=== PATIENT | female | born 1940 | race Caucasian/White ===

== ENCOUNTER 2021-12-29 12:43 | Day surgery (SDC) | payer MEDICARE, BC, SELFPAY ==
[2021-11-15 12:22] VITALS: BMI 39.1
[2021-12-29] VITALS (9 sets, daily range): BP systolic 130–151; BP diastolic 42–71; PULSE 64–86; RESP 15–18; TEMP 35.5–37.1; O2SAT 94–99; BMI 39.1
--- NOTE | 2021-12-29 | DI.RAD.S_ITS ---
PROCEDURE: XR PELVIS 1-2V INDICATIONS: FOREIGN BODY; lost a needle TECHNIQUE: 2 view of the lower pelvis acquired. COMPARISON: [facility], , XR PELVIS 1-2V, 12/29/2021, 16:21. FINDINGS: Bones: Patient is status post right hip arthroplasty, with hardware components in expected positions. The hip joint appears congruent. The visualized bony structures appear intact. Soft tissues: Overlying postoperative changes are noted. No suspicious soft tissue densities. No radiopaque soft tissue foreign bodies identified in the form of a needle. Skin darien and drainage catheter are in place. IMPRESSION: Stable postsurgical changes status post right total hip arthroplasty. No radiopaque soft tissue foreign bodies identified in the form of the needle. Dictated by: Surinder Figueroa M.D. on 12/29/2021 at 18:24 Approved by: Surinder Figueroa M.D. on 12/29/2021 at 18:25
--- NOTE | 2021-12-29 | DI.RAD.S_ITS ---
PROCEDURE: XR HIP W PEL IF DONE RT 2V INDICATIONS: INTRA-OP HIP RIGHT TECHNIQUE: AP pelvis and lateral view of the right hip acquired. COMPARISON: [facility] [place], [place], XR PELVIS WITH BILATERAL LATERAL HIPS, 10/20/2021, 15:43. [facility], CR, XR PELVIS 1-2V, 12/29/2021, 17:21. FINDINGS: Bones: Patient is status post right hip arthroplasty, with hardware components in expected positions. The hip joint appears congruent. The visualized bony structures appear intact. Soft tissues: Overlying postoperative changes are noted. No suspicious soft tissue densities. Soft tissue drain and skin darien are visualized. IMPRESSION: Status post right total hip arthroplasty without evidence for acute hardware complication. Stable appearance of remote left hip arthroplasty. Dictated by: Surinder Figueroa M.D. on 12/29/2021 at 18:26 Approved by: Surinder Figueroa M.D. on 12/29/2021 at 18:28
--- NOTE | 2021-12-29 06:00 | DI.RAD.S_ITS ---
PROCEDURE: XR PELVIS 1-2V INDICATIONS: right CAROLYNN interop TECHNIQUE: 1 view of the lower pelvis acquired. COMPARISON: None. FINDINGS: Bones: Patient is status post right hip arthroplasty, with hardware components in expected positions. The hip joint appears congruent. A left hip arthroplasty is also seen. The visualized bony structures appear intact. Soft tissues: Overlying postoperative changes are noted. No suspicious soft tissue densities. IMPRESSION: Expected postsurgical change. Dictated by: Rober Donis M.D. on 12/29/2021 at 16:59 Approved by: Rober Donis M.D. on 12/29/2021 at 17:00
[2021-12-29] MEDS: ACETAMINOPHEN 325 MG TABLET 975 MG PO (13:35)
[2021-12-29] MEDS: CELECOXIB 200 MG CAPSULE PO (13:36)
[2021-12-29] MEDS: VANCOMYCIN 1,000 MG/200 ML PIGGYBACK 200 MG IV (13:42)
[2021-12-29] MEDS: LACTATED RINGERS 1,000 ML 125 ML IV ×3 (14:30→19:27)
--- NOTE | 2021-12-29 14:35 | PM.HP.1 ---
History of Present Illness History of Present Illness Date Patient Seen: 12/29/21 Time Patient Seen: 14:10 Chief complaint: OPB Narrative: Is a 81-year-old female with incapacitating right hip pain. Her x-rays show a superior severely destroyed right hip. She is brought the operating room for right total hip arthroplasty. 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) Hx of bilateral cataract extraction (2019) Hx of tonsillectomy Family & Social History Social History: household members spouse Prior Living Arrangements House Safety & Behavioral: Feels Safe in Current Yes Environment Been Physically Hurt or No Threatened By a Person Suicidal Ideation Description None Suicide Plan Description No Plan Tobacco & Substance use: Smoking Status Never smoker alcohol intake current alcohol intake frequency 0-2 drinks per day Substance Use Type does not use Meds Home Medications and Allergies Home Medications Medication Instructions Recorded Confirmed Type acetaminophen 650 mg 650 mg PO Q12H 11/15/21 12/29/21 History tablet,extended release chlorthalidone 25 mg tablet 25 mg PO DAILY 11/15/21 12/29/21 History levothyroxine 88 mcg tablet 88 mcg PO DAILY 11/15/21 12/29/21 History lisinopril 10 mg tablet 10 mg PO QPM 11/15/21 12/29/21 History Allergies Allergy/AdvReac Type Severity Reaction Status Date / Time adhesive tape Allergy Severe My skin Verified 12/29/21 13:19 comes off with it Review of Systems Review of Systems Narrative: Denies recent fevers or chills, notes that she has been feeling reasonably good no recent cardiac or respiratory problems Exam Vital Signs (past 8 hours): - 12/29/21 13:20 Temperature 98.8 F Pulse Rate 86 Respiratory Rate 18 Blood Pressure 151/70 H Pulse Oximetry 99 Oxygen Delivery Method Room Air Narrative Exam Narrative: HEENT is benign, lungs are clear, cor regular rate and rhythm, abdomen is obese but benign, right lower extremity shows severe pain with range of motion, shortening of the right femoral head and substantial stiffness. She is neurologically intact distally except for some mild bilateral lower extremity numbness Objective ECG Impression: Severe right hip osteoarthritis I have recommended a right total hip arthroplasty Assessment & Plan Assessment and plan (1) Osteoarthritis of right hip: Status: Acute Plan I recommended a right total hip arthroplasty. The procedure alternatives risks benefits and complications were discussed in detail. Her previous history and physical was reviewed and updated. There has been no interval change. She notes incapacitating right hip pain and I recommended a right total hip arthroplasty. Assessment & Plan narrative: Right total hip arthroplasty. Posterior approach. Time Spent With Patient Critical Care time: I spent a total of [] minutes of critical care time on this patient's care today; this time is exclusive of procedural time.
--- NOTE | 2021-12-29 14:42 | PM.OP.1 ---
Operative Date/Time/Diagnoses Date of procedure: 12/29/21 Time of procedure: 15:00 Pre-op diagnosis: Severe right hip osteoarthritis, morbid obesity Post-op diagnosis: same Procedure & Clinicians Procedure: Right total hip arthroplasty posterior approach Same procedure as scheduled: Yes Indications: The patient has had progressively worsening right hip pain with radiographic changes consistent with arthritis. Non-operative management has failed and the patient has requested total hip replacement. The risks, benefits and alternatives to surgery were discussed with the patient prior to proceeding. Risks discussed included, but were not limited to, failure to relieve pain, leg length discrepancy, dislocation, stiffness, infection, nerve damage, deep venous thrombosis, pulmonary embolism, stroke, coma, heart attack, permanent paralysis and , as well as the potential need for eventual revision of the prosthetic. Surgeon: Sloane Bravo Vehicle Operator: Herber Ramirez Anesthesia Type: General and Spinal Operative Notes Findings: Severe right hip osteoarthritis, adequate stability Closure Type: primary Specimen(s): none sent Prosthetic devices, grafts, tissues, transplants, or devices: Nephew R3 cup 4, size 7 standard offset anthology, +0 neutral poly liner, +0 cobalt head, one 6.5 mm 15 mm screw Applied: drain(s) Estimated Blood Loss (mL): 250 Blood products transfused: none Procedure in detail: The patient was seen in the pre-operative area, where the patient identified the right hip as the operative site and this was marked with my initials. The patient received pre-operative antibiotics and was taken to the operating room and placed on the operative table in the left lateral decubitus position after satisfactory anesthesia. A motion and time study teacher out was performed. The right leg was prepared from the ankle to the iliac crest with ChloroPrep in the usual fashion and draped through sterile drapes. The hip was approached through an approximately 20 cm incision centered over the greater trochanter and curving gently posteriorly as it went proximally. This was carried sharply to the fascia jcarlos, which was divided and retracted with a self retaining retractor. The trochanteric bursa was excised with care being taken to avoid the sciatic nerve, which was identified and protected throughout the case. The short external rotators were incised and the capsulomuscular flap was raised and tagged for later repair. The hip was dislocated, and a femoral neck osteotomy performed approximately 15 mm above the lesser trochanter. Retractors were placed around the femur. The canal was opened with a box cutting osteotome, followed by a T handled reamer and a lateralizing reamer. The chili pepper broach was then used, followed by sequential broaching until there was good stability of the broach in the femur. Retractors were placed to expose the acetabulum. The labrum and central soft tissues were removed. Reaming was performed initially going up in 2 mm increments, then 1 mm increments until good bite was obtained with an odd sized reamer. The cup 1 mm larger than the last reamer was then inserted using the appropriate anteversion guides. It was further stabilized with a single screw. A trial neutral liner was placed. The broach was placed in the canal. A trial head and neck were then placed and the hip relocated and checked for leg length and stability. An intraoperative film confirmed the component position and no evidence of fracture. The patient was stable in the position of sleep, of squatting, and could be put through a range of motion with 45 degrees internal rotation without dislocation. At 90 degrees flexion, internal rotation to 70? was possible before dislocation. This was felt to be satisfactory and the appropriate components were opened, and the trials were removed. A placed a 2nd screw in the acetabulum to further stabilize the acetabulum. The acetabular liner was impacted into position. The final stem was then impacted into the prepared femoral canal. A brief Betadine soak was performed while trialing with head options. The hip was meticulously irrigated with normal saline. Finally the femoral head was impacted onto the stem. The acetabulum was cleared of all material and the hip relocated one final time. The capsulomuscular flap was then repaired to the greater trochanter though an awl hole using the tag sutures. The short external rotators were repaired with a nonabsorbable suture. A deep drain was placed and brought out anteriorly. The fascia jcarlos was closed with Vicryl. The subcutaneous layer was closed with barbed sutures and SteriStrips. An Aquacel Ag dressing was applied and the patient was taken to recovery having tolerated the procedure well. Complications: none Post-operative Condition: stable Disposition: observation Plan for aftercare: The patient will be maintained on a standard total hip replacement protocol with weight bearing as tolerated and posterior hip precautions. The patient will receive Aspirin and sequential compression devices for DVT prophylaxis. The patient will be discharged home when safe for the home environment.
[2021-12-29] MEDS: CEFAZOLIN 2 GM/20 ML SYRINGE IV ×2 (15:26→22:55)
[2021-12-29] MEDS: TRANEXAMIC ACID 1,000 MG VIAL 2000 MG INJ ×2 (15:27→17:05)
--- NOTE | 2021-12-29 15:40 | SUR.OPER ---
Lateral on padded OR bed. Gel axillary roll. Arms secured on padded armboard with pillow supporting top arm. Padded hip positioner braces x4 - anterior and posterior chest and pelvis. Additional gel pad used anterior pelvis. Gel pad under bottom leg from knee to foot and secured with tape over sheet.
[2021-12-29] MEDS: BUPIVACAINE LIPOSOME 266 MG/20 ML VIAL INJ (15:46)
[2021-12-29] MEDS: BUPIVACAINE 0.5% W/ EPI (PF) 30 ML VIAL INJ (16:07)
[2021-12-29] MEDS: EPINEPHrine 1 MG/ML TOP (16:31)
[2021-12-29] MEDS: SODIUM CHLORIDE IRRIG SOLUTION 250 ML, POVIDONE-IODINE SPONGE STICKS 1 APPLIC IRR (16:32)
--- NOTE | 2021-12-29 17:42 | SUR.OPER ---
All counts completed by Viktoria Diehl RN and Dilma Barcenas floor tech. Initial count was 13 and Final count was 15. Portable x-ray was taken approximately 17:30 after procedure and prior to leaving Operating Room.
[2021-12-29] MEDS: IBUPROFEN 400 MG TABLET PO (20:20)
[2021-12-29] MEDS: DOCUSATE 100 MG CAPSULE PO (20:21)
[2021-12-29] MEDS: ACETAMINOPHEN 325 MG TABLET 650 MG PO (20:21)
[2021-12-29] MEDS: ASPIRIN EC 81 MG TABLET PO (20:21)
[2021-12-30 00:45] VITALS: BP 133/51; PULSE 79; RESP 18; TEMP 36.7; O2SAT 94
[2021-12-30 04:00] VITALS: BP 127/51; PULSE 87; RESP 18; TEMP 36.6; O2SAT 99
[2021-12-30] MEDS: IBUPROFEN 400 MG TABLET PO ×3 (05:47→13:12)
[2021-12-30] MEDS: CEFAZOLIN 2 GM/20 ML SYRINGE IV (06:02)
[2021-12-30 07:34] LABS: Hematocrit 32.3 % (36-46); Hemoglobin 10.6 g/dL (12.0-16.0)
--- NOTE | 2021-12-30 08:13 | PM.DS.1 ---
History of Present Illness History of Present Illness Date Patient Seen: 12/30/21 Time Patient Seen: 08:13 Chief complaint: Right hip pain s/p right CAROLYNN Narrative: Patient is complaining of mild right hip pain this morning. Her main concern is her scratchy throat. She denies any chest pain nausea or vomiting or shortness of breath. No new numbness or tingling. Overall she is feeling well and would like to be discharged home today. Her is available to help as well as her daughter and [id number]. Discharge Providers Provider Discharge Date: 12/30/21 Primary care physician: LISBETH Ramirez Consults: 12/29/21 06:00 Consult to Anesthesiology Routine Comment: Consulting Provider: Anesthesiologist Reason for consultation: Regional block for post operative pain control 12/29/21 18:18 Consult to Anesthesiology Routine Comment: Consulting Provider: Anesthesiologist Reason for consultation: Regional block for post operative pain control Consult to Discharge Planning Routine Comment: Consult to Physical Therapy Evaluate & Treat Comment: Physician Instructions: post op CAROLYNN protocol Consult to Respiratory Therapy Evaluate & Treat Comment: Physician Instructions: Evaluate and treat Discharge provider: Harriet Nguyen PA-C Summary Hospital Course Discharge Diagnosis: Severe right hip osteoarthritis, morbid obesity Hospital Course: Operative Date/Time/Diagnoses Date of procedure: 12/29/21 Time of procedure: 15:00 Procedure & Clinicians Procedure: Right total hip arthroplasty? posterior approach Same procedure as scheduled: Yes Indications: The patient has had progressively worsening right hip pain with radiographic changes consistent with arthritis. Non-operative management has failed and the patient has requested total hip replacement. The risks, benefits and alternatives to surgery were discussed with the patient prior to proceeding. Risks discussed included, but were not limited to, failure to relieve pain, leg length discrepancy, dislocation, stiffness, infection, nerve damage, deep venous thrombosis, pulmonary embolism, stroke, coma, heart attack, permanent paralysis and , as well as the potential need for eventual revision of the prosthetic. Surgeon: Sloane Bravo Buffing Wheel Operator: Herber Ramirez Anesthesia Type: General and Spinal Operative Notes Findings: Severe right hip osteoarthritis, adequate stability Closure Type: primary Specimen(s): none sent Prosthetic devices, grafts, tissues, transplants, or devices: Nephew R3 cup 4, size 7 standard offset anthology, +0 neutral poly liner, +0 cobalt head,? one 6.5 mm 15 mm screw Applied: drain(s) Estimated Blood Loss (mL): 250 Blood products transfused: none Status at Discharge Cognitive/behavioral status at discharge: oriented Functional status at discharge: uses cane/walker Overall status at discharge: patient is progressing back to baseline Exam Vital Signs (past 8 hours): - 12/30/21 00:45 12/30/21 04:00 Temperature 98.0 F 97.9 F Pulse Rate 79 87 Respiratory Rate 18 18 Blood Pressure 133/51 L 127/51 L Pulse Oximetry 94 99 Oxygen Delivery Method Room Air Oxygen Flow Rate 0 Narrative Exam Narrative: Pleasant 81-year-old female, resting comfortably in bed, no acute distress. Dressing is clean, dry, intact. Hemovac has put out minimal drainage. Bilateral lower extremity: Motor functions are grossly intact, sensation is grossly intact to light touch, calves are soft and nontender to palpation. 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 Weightbearing as tolerated front wheel walker. Maintain posterior hip precautions x6 weeks -aspirin 81 mg twice daily x6 weeks for DVT prophylaxis, continue with current pain regimen -remove Hemovac today and clamp off charly dressing, as it is not functioning -cephacol lozenges for her scratchy throat -DC home once cleared by PT x2 sessions Discharge Plan Discharge Plan Patient Disposition: Home Discharge orders & Medications Discharge Orders: Discharge (Order); Ordered 12/30/21 Ordered By: Harriet Nguyen Prescriptions: New aspirin 81 mg Tablet,Delayed Release (Dr/Ec) 81 mg PO BID 42 Days Qty: 84 0RF Rx Instructions: Prevent blood clots ibuprofen 400 mg Tablet 400 mg PO Q4HR MDD Max 2400 mg per day PRN (Reason: Pain/inflammation) Qty: 90 0RF acetaminophen 500 mg capsule 500 mg PO Q4H MDD Max 3000 mg per day PRN (Reason: fever or pain) Qty: 90 0RF oxycodone 5 mg Tablet 5 mg PO Q3HR PRN (Reason: Pain, Moderate (4-6)) Qty: 30 0RF Continued chlorthalidone 25 mg Tablet 25 mg PO DAILY 0RF acetaminophen 650 mg Tablet Extended Release 650 mg PO Q12H 0RF levothyroxine 88 mcg Tablet 88 mcg PO DAILY 0RF lisinopril 10 mg Tablet 10 mg PO QPM 0RF Follow up/Referrals: Kim Bedolla FNP-C [Primary Care Provider] - Sloane Bravo MD [Physician] - (10-14 days for postoperative visit) Diet/Activity/Treatments Diet: Diet as Tolerated Other treatments: Medications: -Aspirin 81mg twice daily x6 weeks to prevent blood clots. -OTC Tylenol 500 mg 1 tablet every 4 hours as needed for pain/fever. Max 6 tablets per day. -Ibuprofen 400 mg 1 tablet every 4 hours as needed for pain/inflammation. Max 2,400 mg per day. -Oxycodone 5 mg take 1-2 tablets every 4 hours as needed for moderate-severe pain (narcotic pain medication). -As needed medications: -Ducolax and /or MiraLax as needed for constipation from narcotic pain medications. -Pepcid AC as needed for stomach upset (usually from aspirin or ibuprofen). Dressing/Wound care: -Keep Charly dressing in place until postoperative follow-up office visit. -Okay to shower. Keep wound out of direct water stream. No soaking or submerging until all the scabs fall off (approximately 6 weeks). -Please call the office if dressing becomes wet, soiled, or saturated. Activities: -Maintain posterior hip precautions x6 weeks. -Weight-bearing as tolerated. Use front wheeled walker, and progress to cane when safe. -Continue with home exercises as directed by your physical therapist. -Elevate ?toes above the nose if you have significant swelling in your lower leg. (Oscar wedge pillow is easiest.) -Ice your incision as needed for pain/inflammation/swelling. Protect your skin with a folded pillowcase. Follow-up: -Follow-up with your surgeon or PA in the office in 10-14 days after surgery. -Follow-up with your surgeon 6 weeks postoperatively. Call the office if you have chest pain, shortness of breath, significant swelling that will not resolve with elevating, fever over 101?, significantly worsening pain. [facility]: [phone] Skin/Wound/Dressing Care Report to your healthcare provider any signs of infection, such as:: chills, fever, night sweats, unusual drainage and unusual redness Visit Report/Discharge Packet Instructions: DI for Hip Replacement Stand Alone Forms: Surgery Discharge Discharge Data Primary Care Provider: Kim Bedolla Attending Provider: Sloane Bravo Quality VTE Deep Vein Thrombosis/Pulmonary Embolism Present on Admission: No
[2021-12-30 08:39] VITALS: BP 119/42; PULSE 71; RESP 16; TEMP 36.1; O2SAT 98
[2021-12-30] MEDS: LEVOTHYROXINE 88 MCG TABLET PO (09:06)
[2021-12-30] MEDS: CHLORTHALIDONE 25 MG TABLET PO (09:06)
[2021-12-30] MEDS: BENZOCAINE/MENTHOL 1 LOZ PKT 1 EACH PO (09:06)
[2021-12-30] MEDS: ASPIRIN EC 81 MG TABLET PO (09:07)
[2021-12-30] MEDS: DOCUSATE 100 MG CAPSULE PO (09:07)
[2021-12-30] MEDS: ACETAMINOPHEN 325 MG TABLET 650 MG PO (09:07)
--- NOTE | 2021-12-30 09:15 | PT.IIE ---
Current Diagnoses Unilateral primary osteoarthritis, right hip (12/29/21) Surgery Performed Operation Date: 12/29/21 14:45 Actual Procedures p Total Hip Arthroplasty(Right) - Sloane Bravo MD Medical History (Last Reviewed 12/30/21 @ 08:15 by Harriet Nguyen PA-C) Elevated cholesterol Heart murmur HTN (hypertension) Hypothyroid Osteoarthritis Thinning of skin Physical Therapy Inpatient Evaluation/Re-Eval M1 PT/OT-IP Prior Functional Status Start: 12/30/21 13:20 Freq: NEEDED Status: Active Protocol: Document 12/30/21 09:15 AB (Rec: 12/30/21 13:30 AB [id number]) Medical Review Prior Functional Status Medical History Reviewed Yes Communication able to make needs known; SENE[place]-CAYUGA and slight confusion Mobility and Gait pt tated that she is modified independent with all mobilities and ambulation without AD but has used 2 canes a few months prior to surgery Social History Household Members spouse Living Arrangements House Number of Floors (Floors) Two Floors Number of Stairs To Enter/Railing? pt stays on main level of the house 2 steps B rails to enter the house Home Environment High Toilet,Walk in Shower, Built-In Shower Seat Home Equipment Front Wheel Walker,Straight Cane,Hand Held Shower,Grab Bars In Shower Additional Social History Comment pt stated that her daughter will stay with her for 1-2 weeks to assist her and her daughter in law can also come in to assist her if needed M2 PT-IP Current Condition Start: 12/30/21 13:20 Freq: NEEDED Status: Active Protocol: Document 12/30/21 09:15 AB (Rec: 12/30/21 13:30 AB [email or web address]) Physical Therapy Current Condition Current Condition Evaluation Date 12/30/21 Treatment Diagnosis s/p R CAROLYNN posterior approach; difficulty in walking Onset Date 12/29/21 M3 PT-IP Subjective Start: 12/30/21 13:20 Freq: NEEDED Status: Active Protocol: Document 12/30/21 09:15 AB (Rec: 12/30/21 13:30 AB [email or web address]) Subjective Physical Therapy Visit Type Type Initial Evaluation Visit Start Time 09:15 Visit Stop Time 10:15 Total Visit Minutes 60 Number of SPLINE ROLLING MACHINE JOB SETTER Visits 0 Physical Therapy Visit Comments Patient Comments pt agreeable to do PT Therapy Pain Assessment Pain When Pain Assessed At Rest Pain Present Pain Present Pain Reported Location Right Hip Intensity 6 Scale Used Numeric (0 - 10) Pain Management Techniques Distraction,Elevation, Modification of Treatment,Re- positioning,Timing of Activity with Medications M4 PT-IP Mobility and Gait Start: 12/30/21 13:20 Freq: NEEDED Status: Active Protocol: Document 12/30/21 09:15 AB (Rec: 12/30/21 13:30 AB [email or web address]) PT-Bed Mobility Assessment Supine to Sit Supine to Sit Minimal Assistance PT-Transfer Assessment Sit to and From Stand Sit to and from Stand Moderate Assistance,1 Person Assistance,Use of Upper Extremities Equipment Transfer Assistive Device Front Wheeled Walker Orthotic/Prosthetic Devices or Brace: No Transfers Transfer Destination Chair,Toilet Transfer Technique ambulated Transfer Ability Level of Assist Moderate Assistance,1 Person Assistance,Use of Upper Extremities Comments Mobility Comments educated pt on posterior hip precautions. pt requires cues to recall. completed supine to sit min A and max cues. pt sat on EOB CGA. completed sit to stand mod A and max cues for hip precautions. ambulated in room using FWW ~ 30 ft mod A and cues. cued for quads sets. pt requested to use the toilet and ambulated towards the toilet using FWW. max cues for hip precautions. call light positioned nex to pt and instructed to call for assitance. informed nurse. caregiver training set up this afternoon at 130 pm. Gait Assessment Gait Gait Assistance Required: Minimum Assistance,Moderate Assistance Distance (Feet) 30 Able to Maintain Weight Bearing Status Yes During Gait Assistive Devices Assistive Device Gait Belt,Front Wheeled Walker Orthotic/Prosthetic Devices or Brace: No Gait Deviations General Gait Pattern Antalgic,Decreased Stride Length,Decreased Feet Clearance Factors Limiting Gait Function Factors Limiting Gait Function Decreased Activity Tolerance, Decreased Strength,Difficulty Following Directions,Limited Range of Motion,Pain,Poor Balance,Poor Safety Awareness PT-Balance Assessment Sitting Balance and Reactions Static Sitting Balance Ability Good Dynamic Sitting Balance Ability Good Standing Balance and Reactions Static Standing Balance Ability Fair Dynamic Standing Balance Ability Fair Device Used FWW M5 PT-IP Objective Assessments Start: 12/30/21 13:20 Freq: NEEDED Status: Active Protocol: Document 12/30/21 09:15 AB (Rec: 12/30/21 13:30 AB [email or web address]) Orientation Orientation/Cognition Level of Alertness Alert Orientation Name,Place,Situation Language Function Ability Hard of Hearing Safety Awareness Decreased Safety Awareness Memory Description Short Term Impaired Comments with confusion Gross Range of Motion Lower Extremity ROM Assessment Within Functional Limits Strength Lower Extremity Strength Assessment Right Impaired Hip 3+/5 Knee 3+/5 Coordination Assessment Gross Coordination Gross Coordination WNL Sensation Assessment Sensation Gross Sensation WNL Muscle Tone Muscle Tone WNL Yes M6 PT-IP Treatment Start: 12/30/21 13:20 Freq: NEEDED Status: Active Protocol: Document 12/30/21 09:15 AB (Rec: 12/30/21 13:30 AB [email or web address]) Physical Therapy Treatment Education Education Provided Precautions,Weight Bearing Status,Post-Op Packet,Safety M7 PT-IP Assessment and Plan Start: 12/30/21 13:20 Freq: NEEDED Status: Active Protocol: Document 12/30/21 09:15 AB (Rec: 12/30/21 13:30 AB [email or web address]) PT Summary Assessment and Plan Potential Rehabilitation Potential Fair Status of Condition at Evaluation Evolving Summary Impairments Pain,ROM,Strength,Balance, Coordination,Sensation,Tone, Cognition,Bed Mobility, Transfers,Gait,Activity Tolerance Assessment Summary pt requiring mod A with mobility and max cues with all tasks for hip precautions and safety. caregiver training set up for this afternoon at 130 pm. will continue to assess progress for safe d/c plan. Goals Bed Mobility Goal Standby Assistance Transfer Goal Standby Assistance,Front Wheeled Walker Gait Goal Standby Assistance,Front Wheel Walker Gait Distance 200 Other Goals up/down 2 steps B rails SBA Days to Meet Goals 5 Frequency of Treatment Frequency Of Treatment Twice a Day Treatment Plan Physical Therapy Treatment Plan Bed Mobility Training,Transfer Training,Gait Training, Therapeutic Exercise,Balance Retraining,Post Op Education, Discharge Planning,Hot or Cold Pack,Neuromuscular Re-ed, Coordination Retraining,Manual Therapy Precautions Posterior Hip Precautions No Hip Flexion > 90 degrees,No Hip Internal Rotation,No Hip Adduction Weight Bearing Status Weight Bearing Status Weight Bear as Tolerated Allowed Weight Bearing Amount (enter % RLE WBAT or #) (%) Recommendations To Nursing Amount of Assist Needed 1 Person Assist Discharge Recommendations PT Discharge Recommendations Home with 29/05 Assist Available,Outpatient PT Transportation Needs at Discharge Private Vehicle
--- NOTE | 2021-12-30 13:30 | PT.IPTN ---
Current Diagnoses Unilateral primary osteoarthritis, right hip (12/29/21) Surgery Performed Operation Date: 12/29/21 14:45 Actual Procedures p Total Hip Arthroplasty(Right) - Sloane Bravo MD Physical Therapy Treatment Note M2 PT-IP Current Condition Start: 12/30/21 13:20 Freq: NEEDED Status: Discharge Protocol: Document 12/30/21 09:15 AB (Rec: 12/30/21 13:30 AB [email or web address]) Physical Therapy Current Condition Current Condition Evaluation Date 12/30/21 Treatment Diagnosis s/p R CAROLYNN posterior approach; difficulty in walking Onset Date 12/29/21 M3 PT-IP Subjective Start: 12/30/21 13:20 Freq: NEEDED Status: Discharge Protocol: Document 12/30/21 13:30 AB (Rec: 12/30/21 15:12 AB [id number]) Subjective Physical Therapy Visit Type Type Treatment Note Visit Start Time 13:30 Visit Stop Time 14:05 Total Visit Minutes 35 Number of MANAGER OF MANUFACTURING Visits 0 Physical Therapy Visit Comments Patient Comments pt's DIL in room for cargiver training Therapy Pain Assessment Pain When Pain Assessed At Rest Pain Present Pain Present Pain Reported Location Right Hip Intensity 5 Scale Used Numeric (0 - 10) Pain Management Techniques Distraction,Modification of Treatment,Re-positioning, Timing of Activity with Medications M4 PT-IP Mobility and Gait Start: 12/30/21 13:20 Freq: NEEDED Status: Discharge Protocol: Document 12/30/21 13:30 AB (Rec: 12/30/21 15:12 AB [email or web address]) PT-Bed Mobility Assessment Supine to Sit Supine to Sit Standby Assistance PT-Transfer Assessment Sit to and From Stand Sit to and from Stand Contact Guard Assistance,1 Person Assistance,Use of Upper Extremities Equipment Transfer Assistive Device Gait Belt,Front Wheeled Walker Orthotic/Prosthetic Devices or Brace: No Comments Mobility Comments educated DIL regarding pt's hip posterior precautions. pt completed supine to sit SBA. educated DIL regarding use of safety belt and how to assist pt. DIL was able to put sfety belt on pt. assisted pt with ambulation using FWW ~ 125 ft SBA to CGA. educated on stair climbing and how DIL will assist pt. pt completed up/down steps using B rails min A and cues with DIL assisting. pt can be impulsive. difficulty with elevating LLE up step and tends to lean back to use trunk muscles to elevate LE up step. educated pt on safety. pt completed again using R rail ascending with DIL assisting. pt held on to R rail with B hands and climbed up sideways. completed both since pt is saying that she can reach B rails but DIL is saying that rails are too far apart. pt assisted back to her room on a w/c. educated on car transfer techniques, car seat positioning for hip precautions. pt and daughter without any other concerns. Gait Assessment Gait Gait Assistance Required: Standby Assistance,Contact Guard Assist,1 Person Assist Distance (Feet) 125 Able to Maintain Weight Bearing Status Yes During Gait Assistive Devices Assistive Device Gait Belt,Front Wheeled Walker Orthotic/Prosthetic Devices or Brace: No Gait Deviations General Gait Pattern Antalgic,Decreased Feet Clearance,Step-to Gait Factors Limiting Gait Function Factors Limiting Gait Function Decreased Activity Tolerance, Decreased Strength,Difficulty Following Directions,Limited Range of Motion,Pain,Poor Balance,Poor Safety Awareness Stair Climbing Assessment Evaluation Level of Assist On Stairs Minimal Assistance Devices Stair Climbing Assistive Devices Left Railing,Right Railing Technique/Endurance Stair Climbing Direction Ascend and Descend Stair Climbing Technique Step to Step Number of Steps Climbed 3 Stair Climbing Set # Repetitions (reps) 2 Comments Stair Climbing Comments pls refer to mobility section for details M5 PT-IP Objective Assessments Start: 12/30/21 13:20 Freq: NEEDED Status: Discharge Protocol: Document 12/30/21 09:15 AB (Rec: 12/30/21 13:30 AB [id number]) Orientation Orientation/Cognition Level of Alertness Alert Orientation Name,Place,Situation Language Function Ability Hard of Hearing Safety Awareness Decreased Safety Awareness Memory Description Short Term Impaired Comments with confusion Gross Range of Motion Lower Extremity ROM Assessment Within Functional Limits Strength Lower Extremity Strength Assessment Right Impaired Hip 3+/5 Knee 3+/5 Coordination Assessment Gross Coordination Gross Coordination WNL Sensation Assessment Sensation Gross Sensation WNL Muscle Tone Muscle Tone WNL Yes M6 PT-IP Treatment Start: 12/30/21 13:20 Freq: NEEDED Status: Discharge Protocol: Document 12/30/21 13:30 AB (Rec: 12/30/21 15:12 AB [id number]) Physical Therapy Treatment Education Education Provided Precautions,Safety M7 PT-IP Assessment and Plan Start: 12/30/21 13:20 Freq: NEEDED Status: Discharge Protocol: Document 12/30/21 13:30 AB (Rec: 12/30/21 15:12 AB [id number]) PT Summary Assessment and Plan Potential Rehabilitation Potential Good Summary Impairments Pain,ROM,Strength,Balance, Coordination,Sensation,Tone, Cognition,Bed Mobility, Transfers,Gait,Activity Tolerance Progress Towards Goals Progressing Toward Goals Assessment Summary caregiver training completed and ANGELICA was able to assist pt safely. ANGELICA stated that she is going to pass along training to pt's spouse. pt may go home when medically stable. Goals Bed Mobility Goal Standby Assistance Transfer Goal Standby Assistance,Front Wheeled Walker Gait Goal Standby Assistance,Front Wheel Walker Gait Distance 200 Other Goals up/down 2 steps B rails SBA Days to Meet Goals 5 Frequency of Treatment Frequency Of Treatment Twice a Day Treatment Plan Physical Therapy Treatment Plan Bed Mobility Training,Transfer Training,Gait Training, Therapeutic Exercise,Balance Retraining,Post Op Education, Discharge Planning,Hot or Cold Pack,Neuromuscular Re-ed, Coordination Retraining,Manual Therapy Precautions Posterior Hip Precautions No Hip Flexion > 90 degrees,No Hip Internal Rotation,No Hip Adduction Weight Bearing Status Weight Bearing Status Weight Bear as Tolerated Allowed Weight Bearing Amount (enter % RLE WBAT or #) (%) Recommendations To Nursing Amount of Assist Needed 1 Person Assist Discharge Recommendations PT Discharge Recommendations Home with 29/05 Assist Available,Outpatient PT Transportation Needs at Discharge Private Vehicle
--- NOTE | 2021-12-30 14:27 | PC.NURSE ---
Pt has showered and is dressed and ready for discharge home with Daughter In Law Elina. IV has been removed. Went over d/c instructions with Pt and DIL-discussed d/c meds, time of last dose, reviewed stroke education, s/s of infection and when to call MD. Reminded Pt that she cannot drive while she is taking narcotics and to drink plenty of fluids to prevent constipation or dehydration. Pt already has an appointment for follow up with Dr. Bravo. Pt denies further questions and was taken out via w/c by PLANNING RN to POV with DIL and all belongings.
--- NOTE | 2021-12-30 16:11 | CM.IDA ---
Initial DCP Assessment Note Pt is an 81 yo female, resident of [place] on [facility] , now POD#1 from Rt hip surgery by Dr Bravo PCP: Kim Bedolla Pay: [facility] Reviewed chart, pt discussed in multidisciplinary rounds this morning. Therapy has cleared pt for return home w/family to assist and pt has planned for home, DC order from Ortho has already been initiated this morning. No needs identified from DC planning team GAY Cee
== END 2021-12-30 14:32 | disposition home or self-care (01) ==
LOC: OR 12:56 → AC 12:56
PROVIDERS: PCP Registered Nurse; Referring Provider Orthopaedic Surgery; Visit Provider Orthopaedic Surgery
PROC: 0SR90JZ Replacement of Right Hip Joint with Synthetic Substitute, Open Approach (ICD-10-PCS; CPT 27130; principal; 2021-12-29 14:45)
DX: M16.11 Unilateral primary osteoarthritis, right hip (principal); E66.01 Morbid (severe) obesity due to excess calories; I10 Essential (primary) hypertension; Z68.39 Body mass index [BMI] 39.0-39.9, adult
CPT/HCPCS: 27130; 36415; 72170; 73502; 85014; 85018; 97162; 97530; C1776; C9290; J0171; J0690; J2704

== ENCOUNTER → 2022-02-11 09:50 | Outpatient (CLI) | payer MEDICARE, BC, SELFPAY ==
[2021-12-29 19:06] VITALS: BMI 39.1
--- NOTE | 2022-02-11 09:52 | DI.US.S_ITS ---
PROCEDURE: US PERIPH VENOUS LOW EXTREM BI INDICATIONS: EDEMA TECHNIQUE: Real-time imaging, as well as color and pulse Doppler interrogation, were performed of the deep veins of both legs from the inguinal ligament to the popliteal fossa. COMPARISON: None. FINDINGS: Right: The common femoral, femoral and popliteal veins are normally compressible, and free of intraluminal thrombus. Color and pulse Doppler demonstrate normal phasic intravascular flow. There is normal augmentation response to distal compression maneuver. Left: The common femoral, femoral and popliteal veins are normally compressible, and free of intraluminal thrombus. Color and pulse Doppler demonstrate normal phasic intravascular flow. There is normal augmentation response to distal compression maneuver. IMPRESSION: Negative for deep venous thrombosis. Dictated by: Abiel Cook M.D. on 02/11/2022 at 10:19 Approved by: Abiel Cook M.D. on 02/11/2022 at 10:20
== END ==
PROVIDERS: PCP Registered Nurse; Referring Provider Orthopaedic Surgery; Visit Provider Orthopaedic Surgery
DX: R60.0 Localized edema (principal)
CPT/HCPCS: 93970